=== PATIENT | female | born 1935 | race Caucasian/White ===

== ENCOUNTER 2022-07-07 20:34 | Inpatient (IN) | payer MEDICARE ==
[~2022-07-07] VITALS: Ht 312.4 cm; Wt 86.2 kg
[~2022-07-07 20:34] MED LIST: ATOR10TA PO; CHOL100036; LANS30CA55 MT; LISI10TA26 MT; PANT40TA51 PO
[2022-07-07 23:11] LABS: CHLORIDE 100 mEq/L (98-107)
[2022-07-08] VITALS (32 sets, daily range): BP systolic 124–153; BP diastolic 62–87
[2022-07-08] MEDS ORDERED: CEFTRIAXONE 1 G PREMIX 50 ML IV ONE (00:15)
[2022-07-08 01:22] LABS: MEAN CORPUSCULAR HEMOGLOBIN 21.7 pg (28.0-32.0); MEAN CORPUSCULAR VOLUME 76.6 fL (81.0-99.0); MEAN PLATELET VOLUME 10.2 fl (7.4-10.4); PLATELET 211 x1000/uL (130-400); RED BLOOD CELL COUNT 1.36 mill/uL (4.2-5.4); RED CELL DISTRIBUTION WIDTH 20.3 % (11.6-14.6)
[2022-07-08 01:40] LABS: HEMATOCRIT. 10.4 % (36.0-48.0)
[2022-07-08 01:41] LABS: HEMOGLOBIN. 2.9 g/dL (12.0-16.0)
[2022-07-08] MEDS ORDERED: PANTOPRAZOLE 80 MG in SODIUM CHLORIDE 0.9% 100 ML IV STA (03:14)
[2022-07-08] MEDS ORDERED: PANTOPRAZOLE SODIUM 40 MG/VIAL IV NR (03:15)
[2022-07-08 07:14] LABS: NUCLEATED RED BLOOD CELLS 1 /100 WBC; PLATELET ESTIMATE NORMAL
[2022-07-08] MEDS ORDERED: ACETAMINOPHEN 650MG SUPP PR PRN ×2 (08:30)
[2022-07-08] MEDS ORDERED: IPRATROPIUM/ALBUTEROL 0.5-3(2.5)MG/3ML NEB NEB PRN (08:30)
[2022-07-08] MEDS: DEXT 5%/LACTATED RINGERS 1,000 ML IV SCH (08:30)
[2022-07-08] MEDS ORDERED: PIPERACILLIN/TAZ 3.375G PREMIX 50 ML IV SCH (08:30)
[2022-07-08] MEDS ORDERED: ONDANSETRON HCL 4MG/2ML INJ IV PRN (08:30)
[2022-07-08] MEDS ORDERED: NOREPINEPHRINE 8 MG in DEXT 5% WATER 242 ML IV PRN (08:30)
[2022-07-08] MEDS: PANTOPRAZOLE 80 MG in SODIUM CHLORIDE 0.9% 100 ML IV SCH ×2 (09:00→17:24)
[2022-07-08 09:28] LABS: INR 1.1; PARTIAL THROMBOPLASTIN TIME 25.9 sec (23.4-31.0)
[2022-07-08] MEDS ORDERED: PIPERACILLIN/TAZ 3.375G PREMIX 50 ML IV NR (10:00)
[2022-07-08] MEDS ORDERED: VANCOMYCIN 1G PREMIX 200 ML IV NR ×2 (10:30→15:00)
[2022-07-08 11:51] LABS: HEMATOCRIT 27.3 % (36.0-48.0)
[2022-07-08 12:01] LABS: T4 FREE 1.09 ng/dL (0.76-1.46)
[2022-07-08 12:52] LABS: FOLIC ACID (FOLATE) SERUM > 20.00 ng/mL (>5.38); VITAMIN B12 SERUM > 2000.0 pg/mL (211-911)
[2022-07-08] MEDS: IRON SUCROSE COMPLEX 100 MG/5 ML ML IV SCH (16:37)
[2022-07-08] MEDS: SORBITOL 70% SOLN 30ML PO SCH (17:24)
[2022-07-08] MEDS: PANTOPRAZOLE SODIUM 40 MG/VIAL IV SCH (17:25)
[2022-07-08] MEDS: PIPERACILLIN/TAZOBACTAM 3.375G in DEXT 5% WATER 50ML IV SCH (18:33)
[2022-07-09] VITALS (54 sets, daily range): BP systolic 128–165; BP diastolic 68–97
[2022-07-09 05:44] LABS: BASOPHILS % 0.3 % (0.0-2.0); EOSINOPHILS % 0.4 % (0.0-5.0); HEMATOCRIT. 29.4 % (36.0-48.0); HEMOGLOBIN. 9.5 g/dL (12.0-16.0); LYMPHOCYTES % 7.1 % (20.0-50.0); MEAN CORPUSCULAR HEMOGLOBIN 28.2 pg (28.0-32.0); MEAN CORPUSCULAR VOLUME 86.7 fL (81.0-99.0); MEAN PLATELET VOLUME 10.2 fl (7.4-10.4); MONOCYTES % 12.5 % (2.0-8.0); NEUTROPHILS % 79.7 % (40.0-76.0); PLATELET 162 x1000/uL (130-400); RED BLOOD CELL COUNT 3.39 mill/uL (4.2-5.4); RED CELL DISTRIBUTION WIDTH 17.9 % (11.6-14.6)
[2022-07-09 06:02] LABS: CHLORIDE 109 mEq/L (98-107)
[2022-07-09] MEDS: PIPERACILLIN/TAZOBACTAM 3.375G in DEXT 5% WATER 50ML IV SCH ×5 (06:03→22:18)
[2022-07-09 06:11] LABS: PHOSPHORUS 3.7 mg/dL (2.5-4.9)
[2022-07-09] MEDS: SORBITOL 70% SOLN 30ML PO SCH ×2 (09:00→09:16)
[2022-07-09] MEDS: PANTOPRAZOLE SODIUM 40 MG/VIAL IV SCH ×2 (09:16→16:47)
[2022-07-09] MEDS: VANCOMYCIN 750MG PREMIX 150 ML IV SCH (09:16)
[2022-07-09] MEDS: IRON SUCROSE COMPLEX 100 MG/5 ML ML IV SCH (15:34)
[2022-07-09] MEDS: DEXT 5%/LACTATED RINGERS 1,000 ML IV SCH (15:39)
[2022-07-09] MEDS ORDERED: METOCLOPRAMIDE HCL 10MG/2ML VIAL IV SCH (16:30)
[2022-07-09] MEDS ORDERED: BISACODYL 5MG TABLET PO SCH (16:30)
[2022-07-09] MEDS ORDERED: SORBITOL 70% SOLN 30ML PO SCH (17:00)
[2022-07-09] MEDS ORDERED: ALBUTEROL (0.083%) 2.5MG/3ML NEB HHN PRN (17:30)
[2022-07-09] MEDS ORDERED: IPRATROPIUM BROMIDE (0.02%) 0.5MG/2.5ML NEB HHN PRN (17:30)
[2022-07-10 00:26] VITALS: BP 152/87
[2022-07-10 03:02] LABS: CHLORIDE 107 mEq/L (98-107)
[2022-07-10 03:05] LABS: HEMATOCRIT. 30.3 % (36.0-48.0); MEAN CORPUSCULAR HEMOGLOBIN 27.9 pg (28.0-32.0); MEAN CORPUSCULAR VOLUME 84.8 fL (81.0-99.0); MEAN PLATELET VOLUME 9.9 fl (7.4-10.4); PLATELET 174 x1000/uL (130-400); RED BLOOD CELL COUNT 3.58 mill/uL (4.2-5.4); RED CELL DISTRIBUTION WIDTH 18.6 % (11.6-14.6)
[2022-07-10 03:08] LABS: INR 1.2; PROTHROMBIN TIME 12.8 sec (9.6-11.0)
[2022-07-10 04:00] VITALS: BP 143/81
[2022-07-10 04:08] LABS: HEPATITIS B SURFACE ANTIGEN NEGATIVE
[2022-07-10 04:52] LABS: NUCLEATED RED BLOOD CELLS 3 /100 WBC; PLATELET ESTIMATE NORMAL
[2022-07-10] MEDS: PIPERACILLIN/TAZOBACTAM 3.375G in DEXT 5% WATER 50ML IV SCH ×3 (05:59→19:22)
[2022-07-10 08:00] VITALS: BP 140/77
[2022-07-10] MEDS ORDERED: SORBITOL 70% SOLN 30ML PO SCH (09:00)
[2022-07-10] MEDS: PANTOPRAZOLE SODIUM 40 MG/VIAL IV SCH ×2 (09:48→19:23)
[2022-07-10] MEDS: VANCOMYCIN 750MG PREMIX 150 ML IV SCH (10:29)
[2022-07-10 12:00] VITALS: BP 143/84
[2022-07-10] MEDS ORDERED: ONDANSETRON HCL 4MG/2ML INJ ONE (12:46)
[2022-07-10] MEDS ORDERED: PROPOFOL 200MG/20ML VIAL IV ONE (12:46)
[2022-07-10] MEDS ORDERED: DEXAMETHASONE 4MG/ML 1ML VIAL ONE (12:46)
[2022-07-10 16:00] VITALS: BP 145/89
[2022-07-10] MEDS: IRON SUCROSE COMPLEX 100 MG/5 ML ML IV SCH (19:23)
[2022-07-10 20:00] VITALS: BP 148/84
[2022-07-11] VITALS: BP 148/85
[2022-07-11] MEDS: DEXT 5%/LACTATED RINGERS 1,000 ML IV SCH ×3 (02:13→22:10)
[2022-07-11 04:00] VITALS: BP 151/85
[2022-07-11] MEDS: PIPERACILLIN/TAZOBACTAM 3.375G in DEXT 5% WATER 50ML IV SCH ×3 (05:22→22:06)
[2022-07-11 08:00] VITALS: BP 148/85
[2022-07-11] MEDS: PANTOPRAZOLE SODIUM 40 MG/VIAL IV SCH ×2 (08:59→17:19)
[2022-07-11 11:07] LABS: BASOPHILS % 0.4 % (0.0-2.0); HEMATOCRIT. 35.6 % (36.0-48.0); HEMOGLOBIN. 10.9 g/dL (12.0-16.0); LYMPHOCYTES % 10.8 % (20.0-50.0); MEAN CORPUSCULAR HEMOGLOBIN 27.7 pg (28.0-32.0); MEAN CORPUSCULAR VOLUME 90.4 fL (81.0-99.0); MEAN PLATELET VOLUME 10.5 fl (7.4-10.4); MONOCYTES % 8.2 % (2.0-8.0); NEUTROPHILS % 80.6 % (40.0-76.0); PLATELET 177 x1000/uL (130-400); RED BLOOD CELL COUNT 3.94 mill/uL (4.2-5.4); RED CELL DISTRIBUTION WIDTH 19.1 % (11.6-14.6)
[2022-07-11] MEDS: VANCOMYCIN 750MG PREMIX 150 ML IV SCH (11:18)
[2022-07-11 11:19] LABS: CHLORIDE 111 mEq/L (98-107)
[2022-07-11 12:00] VITALS: BP 138/71
[2022-07-11 16:00] VITALS: BP 155/99
[2022-07-11 20:00] VITALS: BP_SYST 154; BP_SYST 164; BP_DIAS 96
[2022-07-12 00:05] VITALS: BP 122/89
[2022-07-12 04:00] VITALS: BP 155/89
[2022-07-12] MEDS: PIPERACILLIN/TAZOBACTAM 3.375G in DEXT 5% WATER 50ML IV SCH ×3 (05:39→21:51)
[2022-07-12 07:48] LABS: BASOPHILS % 0.2 % (0.0-2.0); EOSINOPHILS % 0.4 % (0.0-5.0); HEMATOCRIT. 34.3 % (36.0-48.0); HEMOGLOBIN. 10.8 g/dL (12.0-16.0); LYMPHOCYTES % 10.2 % (20.0-50.0); MEAN CORPUSCULAR HEMOGLOBIN 28.2 pg (28.0-32.0); MEAN CORPUSCULAR VOLUME 89.3 fL (81.0-99.0); MEAN PLATELET VOLUME 9.9 fl (7.4-10.4); MONOCYTES % 11.2 % (2.0-8.0); PLATELET 175 x1000/uL (130-400); RED BLOOD CELL COUNT 3.84 mill/uL (4.2-5.4); RED CELL DISTRIBUTION WIDTH 18.9 % (11.6-14.6)
[2022-07-12 08:00] VITALS: BP 141/91
[2022-07-12 08:24] LABS: CHLORIDE 108 mEq/L (98-107)
[2022-07-12] MEDS: PANTOPRAZOLE SODIUM 40 MG/VIAL IV SCH ×2 (09:09→17:24)
[2022-07-12] MEDS ORDERED: FE300LUD MT (10:05)
[2022-07-12] MEDS ORDERED: SUCR1TAB30 MT (10:05)
[2022-07-12] MEDS ORDERED: LANS30CA52 MT (10:05)
[2022-07-12 12:00] VITALS: BP 114/72
[2022-07-12] MEDS ORDERED: VANCOMYCIN 1G PREMIX 200 ML IV SCH (12:00)
[2022-07-12] MEDS ORDERED: POTASSIUM CHLORIDE 20MEQ/PACKET GT NR (13:15)
[2022-07-12 16:00] VITALS: BP 140/78
[2022-07-12 20:46] VITALS: BP 159/92
[2022-07-13] VITALS: BP 146/84
[2022-07-13 04:00] VITALS: BP 157/86
[2022-07-13] MEDS: PIPERACILLIN/TAZOBACTAM 3.375G in DEXT 5% WATER 50ML IV SCH ×2 (05:40→14:25)
[2022-07-13] MEDS: DEXT 5%/LACTATED RINGERS 1,000 ML IV SCH ×2 (05:41→14:25)
[2022-07-13 06:16] LABS: BASOPHILS % 0.3 % (0.0-2.0); EOSINOPHILS % 0.7 % (0.0-5.0); HEMATOCRIT. 36.9 % (36.0-48.0); HEMOGLOBIN. 11.6 g/dL (12.0-16.0); LYMPHOCYTES % 10.8 % (20.0-50.0); MEAN CORPUSCULAR HEMOGLOBIN 28.4 pg (28.0-32.0); MEAN PLATELET VOLUME 9.4 fl (7.4-10.4); MONOCYTES % 11.6 % (2.0-8.0); NEUTROPHILS % 76.6 % (40.0-76.0); PLATELET 167 x1000/uL (130-400); RED CELL DISTRIBUTION WIDTH 18.8 % (11.6-14.6)
[2022-07-13 07:06] LABS: CHLORIDE 110 mEq/L (98-107)
[2022-07-13] MEDS: PANTOPRAZOLE SODIUM 40 MG/VIAL IV SCH ×2 (08:21→17:00)
[2022-07-13 08:38] VITALS: BP 146/58
[2022-07-13 12:00] VITALS: BP 137/80
[2022-07-13 15:08] VITALS: BP 155/76
[2022-07-13 16:08] VITALS: BP 147/84
== END 2022-07-13 20:00 | disposition home or self-care (01) | DRG 871 ==
LOC: ER 20:34 → EDBEDREQ 07-08 03:26 → EDBEDREQDT 07-08 03:26 → EDBEDREQTM 07-08 03:26 → EDBEDREQSVC 07-08 03:26 → ENRESERV 07-08 11:37 → CVICU 07-08 12:14 → 7WST 07-09 14:58
PROVIDERS: ADMIT Internal Medicine; ATTEND Internal Medicine
PROC: 30233N1 Transfusion of Nonautologous Red Blood Cells into Peripheral Vein, Percutaneous Approach (ICD-10-PCS; 2022-07-08)
PROC: 0DB58ZX Excision of Esophagus, Via Natural or Artificial Opening Endoscopic, Diagnostic (ICD-10-PCS; principal; 2022-07-10)
PROC: 0DB68ZX Excision of Stomach, Via Natural or Artificial Opening Endoscopic, Diagnostic (ICD-10-PCS; 2022-07-10)
PROC: 0D758ZZ Dilation of Esophagus, Via Natural or Artificial Opening Endoscopic (ICD-10-PCS; 2022-07-10)
DX: A41.9 Sepsis, unspecified organism (principal); E43 Unspecified severe protein-calorie malnutrition; G92.8 Other toxic encephalopathy; G82.50 Quadriplegia, unspecified; K29.51 Unspecified chronic gastritis with bleeding; K21.01 Gastro-esophageal reflux disease with esophagitis, with bleeding; I24.8 Other forms of acute ischemic heart disease; E87.20 Acidosis, unspecified; Z68.1 Body mass index [BMI] 19.9 or less, adult; R65.20 Severe sepsis without septic shock; D50.9 Iron deficiency anemia, unspecified; I10 Essential (primary) hypertension; K22.0 Achalasia of cardia; R13.12 Dysphagia, oropharyngeal phase; I48.91 Unspecified atrial fibrillation; R74.01 Elevation of levels of liver transaminase levels; E78.5 Hyperlipidemia, unspecified; Z20.822 Contact with and (suspected) exposure to COVID-19; K22.2 Esophageal obstruction; K22.89 Other specified disease of esophagus; K59.09 Other constipation; R26.9 Unspecified abnormalities of gait and mobility; R53.81 Other malaise; K64.9 Unspecified hemorrhoids; R79.89 Other specified abnormal findings of blood chemistry; Z93.1 Gastrostomy status; Z86.73 Personal history of transient ischemic attack (TIA), and cerebral infarction without residual deficits; Z88.8 Allergy status to other drugs, medicaments and biological substances; Z79.899 Other long term (current) drug therapy
CPT/HCPCS: 36415; 71045; 74176; 76700; 80048; 80053; 80076; 80202; 82270; 82607; 82746; 83036; 83540; 83550; 83605; 83735; 83880; 84100; 84439; 84443; 85014; 85018; 85025; 86705; 86709; 86803; 86850; 86900; 86920; 87340; 87426; 88305; 93005; 93306; 93970; 97162; 97166; 99291; C9113; C9803; J0696; J1100; J2405; J2543; J2704; J2765; J3370; J7050; J7060; P9016; A4315